=== PATIENT | female | born 1955 | race Two or more races ===

== ENCOUNTER → 2019-10-15 | Day surgery (SDC) | payer OTHER ==
[~2019-10-15] MED LIST: DIOVAN HCT 1601 EACH PO; ECOTRIN81 MG PO; NORVASC5 MG PO
== END | disposition home or self-care (01) ==
LOC: ADM 10-09 11:00 → CIR.AMB 06:24
DX: K64.8 Other hemorrhoids (principal); K64.4 Residual hemorrhoidal skin tags